=== PATIENT | male | born 1990 | race Caucasian/White ===

== ENCOUNTER 2021-08-24 13:29 | Emergency (ER) | payer SELFPAY | END 2021-08-24 14:09 | disposition home or self-care (01) | LOC: ERS 13:29 | DX: U07.1 COVID-19 (principal) | CPT/HCPCS: 99283 ==

== ENCOUNTER 2022-01-13 20:58 | Emergency (ER) | payer OTHER, SELFPAY ==
[2022-01-13] MEDS ORDERED: Lidocaine 1% w/Epinephrine 1:100K 20 ML VIAL ONE (22:43)
[2022-01-13] MEDS ORDERED: Boostrix 0.5 ML (Tdap) VIAL ONE (22:44)
[2022-01-13] MEDS ORDERED: Triple Antibiotic Oint 1 GM Packet ONE (23:24)
== END 2022-01-13 23:20 | disposition home or self-care (01) ==
LOC: ERS 20:58
DX: L02.416 Cutaneous abscess of left lower limb (principal); L03.116 Cellulitis of left lower limb; Z23 Encounter for immunization
CPT/HCPCS: 10060; 90715

== ENCOUNTER 2022-12-06 23:18 | Emergency (ER) | payer SELFPAY | END 2022-12-07 00:03 | disposition home or self-care (01) | LOC: ERS 23:18 | DX: L03.116 Cellulitis of left lower limb (principal) | CPT/HCPCS: 99282 ==